=== PATIENT | male | born 1945 | race Hispanic/Latino ===

== ENCOUNTER 2018-04-08 13:39 | Outpatient (CLI) | payer MEDICARE | END 2018-04-08 13:40 | disposition home or self-care (01) | LOC: C.RADIC 13:39 | DX: M25.519 Pain in unspecified shoulder (principal) ==

== ENCOUNTER 2018-04-14 14:13 | Emergency (ER) | payer MEDICARE ==
[2018-04-14 14:13] VITALS: BMI 26.6
[2018-04-14 14:32] VITALS: TEMP 98.3
[2018-04-14] MEDS ORDERED: Oxycodone/Acetaminophen 5/325 mg Tab PO STA ×2 (16:22→18:18)
[2018-04-14] MEDS ORDERED: Oxycodone/Acetaminophen 5/325 mg Tab ONE ×2 (16:35→18:28)
--- NOTE | 2018-04-14 17:38 | C.PDOC ---
History Of Present Illness 73 y/o male brought to ER by ambulance for evaluation of right shoulder pain which has been present for the past 2 weeks. Patient states that he had a shoulder replacement surgery performed by at [facility] in December 2017. Patient reports that he did not have physical therapy because he went to [place] after the surgery. He notes that he was evaluated by his PMD . He had an X-Ray and he was given pain medications and Lidoderm patches without relief. He states that he has "hairline scapular fracture." Denies having fever,chills, CP, and SOB. Time Seen by Provider: 04/14/18 15:41 Chief Complaint (Nursing): Upper Extremity Problem/Injury History Per: Patient History/Exam Limitations: no limitations Onset/Duration Of Symptoms: Days Current Symptoms Are (Timing): Still Present Severity: Moderate Past Medical History Reviewed: Historical Data, Nursing Documentation, Vital Signs Vital Signs: Last Vital Signs Temp 98.3 F 04/14/18 14:28 Pulse 86 04/14/18 14:28 Resp 18 04/14/18 14:28 BP 161/72 H 04/14/18 14:28 Pulse Ox 97 04/14/18 14:28 - Medical History PMH: HTN Denies: Chronic Kidney Disease Other Surgeries: Hx of surgeries - [facility] Procedures EXCISION INTERVERT DISC (12/22/97) SPINAL CORD/MENINGES BX (12/22/97) Family History: States: No Known Family Hx - Social History Hx Alcohol Use: Yes Hx Substance Use: No - Immunization History Hx Tetanus Toxoid Vaccination: No Hx Influenza Vaccination: Yes Hx Pneumococcal Vaccination: No Review Of Systems Except As Marked, All Systems Reviewed And Found Negative. Constitutional: Negative for: Fever, Chills Cardiovascular: Negative for: Chest Pain Respiratory: Negative for: Shortness of Breath Musculoskeletal: Positive for: Shoulder Pain (right shoulder pain) Physical Exam - Physical Exam Appears: Other (drowsy) Skin: Normal Color, Warm, Dry Head: Atraumatic, Normacephalic Eye(s): bilateral: Normal Inspection Nose: Normal Oral Mucosa: Moist Neck: Other (tenderness to right trapezius) Chest: Symmetrical Cardiovascular: Rhythm Regular Respiratory: Normal Breath Sounds, No Rales, No Rhonchi, No Wheezing Gastrointestinal/Abdominal: Normal Exam, Soft, No Tenderness, No Guarding, No Rebound Extremity: No Normal ROM (limited ROM in right shoulder), Tenderness (tenderness to palpation along posterior aspect of right shoulder) Neurological/Psych: Oriented x3, Normal Speech ED Course And Treatment O2 Sat by Pulse Oximetry: 97 (RA) Pulse Ox Interpretation: Normal Progress Note: CT-Upper Extremity ordered. Patient treated with Percocet PO. Disposition Counseled Patient/Family Regarding: Studies Performed, Diagnosis, Need For Followup, Rx Given - Disposition Referrals: Addison Servin MD [Medical Doctor] - Disposition: HOME/ ROUTINE Disposition Time: 18:15 Condition: STABLE Additional Instructions: FOLLOW UP WITH YOUR ORTHOPEDIC SURGEON WITHIN 1 WEEK USE MEDICATION FOR PAIN NEEDED RETURN TO ER IF SYMPTOMS WORSEN Prescriptions: Hydrocodone/Acetaminophen [Hydrocodone-Acetamin 5-325 mg] 1 each PO Q6 PRN #15 tablet PRN Reason: PAIN Instructions: Shoulder Pain (DC) Forms: [employer] (Sinhala) Print Language: KAZAKH - Clinical Impression Clinical Impression: Right shoulder pain - Scribe Statement The provider has reviewed the documentation as recorded by the Tino Bradley Provider Attestation: All medical record entries made by the Tino were at my direction and personally dictated by me. I have reviewed the chart and agree that the record accurately reflects my personal performance of the history, physical exam, medical decision making, and the department course for this patient. I have also personally directed, reviewed, and agree with the discharge instructions and disposition.
[2018-04-14 18:28] VITALS: BP 151/80; PULSE 79; RESP 20
[2018-04-14 18:52] VITALS: O2SAT 97
--- NOTE | 2018-04-15 09:32 | CT ---
CT right shoulder HISTORY: Arthroplasty. Comparison: X-ray dated 04/08/2018 TECHNIQUE: Multiple contiguous axial images were performed through the right shoulder without the use of intravenous contrast. Subsequently, sagittal and coronal reformatted images were obtained. Findings: Patient status post reverse total shoulder arthroplasty. Extensive streak and motion artifact limits evaluation. Anatomic alignment of the surgical hardware at the glenohumeral joint space. Cerclage wires intact. Transverse oblique lucent fracture line seen at the level of the proximal to mid medullary cavity of the right humerus with surrounding callus formation. This may represent fracture nonunion with persistent fracture lines in place. The metallic medullary stem extends into the mid medullary cavity traversing through the fracture site. The metallic component appears preserved. Some questionable lucency seen at the bone metal interface at the distal pole of the metal hardware in the right humerus. In addition, there may be some questionable lucency seen also along the lateral proximal aspect of the right humeral component of the metal hardware as well as adjacent to the inferior aspect of the glenoid component of the hardware. Clinical correlation. Suggestion of some fluid in the subacromial and or subdeltoid bursa. Postsurgical changes at the level of the distal clavicle. Aneurysmal prominence of the ascending aorta which is only partially imaged measuring up to 4 centimeters. Clinical correlation. Coronary calcifications. Atelectasis at the left lung base. Right apical pleural thickening with some focal consolidative changes at the anterior aspect of the right upper lobe of the lung on series 3, image 40. Mild nodularity within the right lung anteriorly on series 3, image 71. Clinical correlation. Correlation with chest CT may be helpful if clinically indicated. Impression: 1. Patient status post reverse total shoulder arthroplasty. Extensive streak and motion artifact limits evaluation. Anatomic alignment of the surgical hardware at the glenohumeral joint space. Cerclage wires intact. 2. Transverse oblique lucent fracture line seen at the level of the proximal to mid medullary cavity of the right humerus with surrounding callus formation. This may represent fracture nonunion with persistent fracture lines in place. The metallic medullary stem extends into the mid medullary cavity traversing through the fracture site. The metallic component appears preserved. 3. Some questionable lucency seen at the bone metal interface at the distal pole of the metal hardware in the right humerus. In addition, there may be some questionable lucency seen also along the lateral proximal aspect of the right humeral component of the metal hardware as well as adjacent to the inferior aspect of the glenoid component of the hardware. Clinical correlation. 4. Suggestion of some fluid in the subacromial and or subdeltoid bursa. 5. Postsurgical changes at the level of the distal clavicle. 6. Additional findings as above. Correlation with plain radiographs and orthopedic consultation is recommended. A preliminary report was generated at 6:06 p.m. on 04/14/[address] Migue Padilla from [id number].
== END 2018-04-14 20:00 | disposition home or self-care (01) ==
LOC: C.ER 14:13
DX: M25.511 Pain in right shoulder (principal)